=== PATIENT | female | born 1950 | race Caucasian/White ===

== ENCOUNTER → 2017-10-10 | Day surgery (SDC) | payer OTHER ==
[~2017-10-10] VITALS: Ht 160 cm; Wt 79.4 kg
[~2017-10-10] MED LIST: AMLODIPINE BESY10 M1 PO; ASPIRIN EC81 M1 PO; BENICAR20 M1 PO; CALTRATE 600 +1 EACH PO; CENTRUM SILVER1 EAC3 PO; CO Q-10100 MG PO; ESCITALOPRAM OX10 MG PO; FISH OIL 1,2001 EACH PO; FLAX OIL1000 M1 PO; HAIR, SKIN & N1 EACH PO; LIPITOR20 M2 PO; LOPRESSOR50 M1 PO; LORAZEPAM0.5 M1 PO; METFORMIN HCL500 M4 PO; PRESERVISION A1 EAC1 PO; PRILOSEC OTC20 M1 PO; SUPER B COMPLE150 MG PO; TRADJENTA5 M1 PO
--- NOTE | 2017-10-10 15:46 | RADIOLOGY REPORT ---
EXAMINATION: XR PORTABLE CHEST CLINICAL INFORMATION: Status post bronchoscopy COMPARISON: Prior examinations including PET/CT October [address] chest September 2017 and chest x-ray August 2017. TECHNIQUE: Portable frontal view of the chest was obtained. FINDINGS: No pneumothorax Nodular opacities in the upper lungs still apparent although the slightly less conspicuous of. The lungs are otherwise clear. Cardiac silhouette mediastinum pulmonary vascularity are normal. IMPRESSION: No pneumothorax status post bronchoscopy. Nodular opacities noted previously are slightly less conspicuous perhaps related to slight differences in projection
--- NOTE | 2017-10-10 17:08 | Operative Report ---
Operative/Inv Procedure Report Surgery Date: 10/10/17 Name of Procedure: Navigational bronchoscopy with fine-needle aspirations brushing forceps biopsy and bronchoalveolar lavage Pre-Operative Diagnosis: Right upper lobe lung nodule left upper lobe lung nodule left lower lobe lung Post-Operative Diagnosis: Same Estimated Blood Loss: scant Surgeon/Electrical Development Engineer: Alvarez Engel MD,Sadiq Tijerina Anesthesia: general endotracheal tube Operative/Procedure Note Note: After placement of monitoring lines and induction of general anesthesia survey bronchoscopy was done. The endobronchial anatomy was normal and the secretions. The navigational system was then registered. We started first with the right upper lobe nodule. The guider catheter was advanced to the posterior segmental bronchus in the right upper lobe lung nodule. Multiple needle aspirations brushings and forceps biopsies were done. Fluid was sent for bronchoalveolar lavage evaluation. With that completed all the instrumentation including the guider catheter were changed to new instruments. We attempted navigation to the left lower lobe nodule in the superior segment but there was a very acute angle that made navigational localization not possible. The guider catheter was then advanced to the left upper lobe apical nodule. This lesion was sent for brushings forceps biopsies and bronchoalveolar lavage. The airways were inspected and there was no evidence of bleeding. The patient tolerated the procedure well and was brought to the recovery room awake and extubated in stable condition.
--- NOTE | 2017-10-11 10:29 | RADIOLOGY REPORT ---
EXAMINATION: Intraoperative fluoroscopy CLINICAL INFORMATION: Bronchoscopy COMPARISON: Chest CT 09/06/2017 TECHNIQUE: Intraoperative fluoroscopy was provided for use by Dr. Pino. A total of 6 images were saved to PACS. A radiologist was not present during the procedure. TOTAL FLUOROSCOPIC TIME: 11 minutes and 6 seconds FINDINGS\E\IMPRESSION: Intraoperative fluoroscopy provided for use by Dr. Pino. Please see operative note for detailed findings.
== END ==
LOC: STS 01:56
DX: R91.8 Other nonspecific abnormal finding of lung field (principal); R05 Cough; Z87.891 Personal history of nicotine dependence; K21.9 Gastro-esophageal reflux disease without esophagitis; E11.9 Type 2 diabetes mellitus without complications; Z79.84 Long term (current) use of oral hypoglycemic drugs; I10 Essential (primary) hypertension; Z86.19 Personal history of other infectious and parasitic diseases
CPT/HCPCS: 71045; 88305; 93005; 93010; C9399; J2250